=== PATIENT | male | born 1980 | race Caucasian/White ===

== ENCOUNTER 2019-12-14 21:11 | Inpatient (IN) | payer BC ==
[~2019-12-14] VITALS: Ht 172.7 cm; Wt 101.6 kg
[2019-12-14] MEDS ORDERED: IV NORMAL SALINE 1000 ML BAG IV ONE (21:15)
[2019-12-14 21:53] LABS: BASOPHILS # (AUTO) 0.1 K/uL (0.0-8.0); BASOPHILS % (AUTO) 0.6 % (0.0-2.0); EOSINOPHILS # (AUTO) 0.1 K/uL (0.0-0.7); EOSINOPHILS % (AUTO) 0.8 % (0.0-7.0); HEMATOCRIT 48.3 % (36.7-47.1); HEMOGLOBIN 16.3 g/dL (12.5-16.3); LYMPHOCYTES # (AUTO) 1.5 K/uL (20.0-40.0); LYMPHOCYTES % (AUTO) 16.5 % (20.5-51.5); MEAN CORPUSCULAR HEMOGLOBIN 30.6 uug (23.8-33.4); MEAN CORPUSCULAR HGB CONC 34 g/dL (32.5-36.3); MONOCYTES # (AUTO) 0.7 K/uL (2.0-10.0); MONOCYTES % (AUTO) 7.5 % (0.0-11.0); NEUTROPHILS # (AUTO) 6.6 K/uL (1.8-8.9); NEUTROPHILS % (AUTO) 74.6 % (38.5-71.5); PLATELET COUNT (AUTO) 199 K/uL (152-348); RED BLOOD CELL COUNT(AUTO) 5.31 MIL/uL (4.06-5.63); WHITE BLOOD COUNT (AUTO) 8.8 K/uL (3.6-10.2)
[2019-12-14 22:04] LABS: CARBON DIOXIDE 26 mmol/L (21-32); CHLORIDE 111 mmol/L (98-107); CREATININE 1.3 mg/dL (0.6-1.3); GLUCOSE 111 mg/dL (74-106); POTASSIUM 3.8 mmol/L (3.5-5.1); UREA NITROGEN, BLOOD 25 mg/dL (7-18)
[2019-12-14 22:10] LABS: ETHANOL < 3 MG/DL (0-0)
[2019-12-14] MEDS ORDERED: IV D5W 1000ML 1,000 ML IV ONE (22:15)
[2019-12-14 22:16] LABS: THYROID STIMULATING HORMONE 1.515 mIU/mL (0.358-3.740)
[2019-12-14 22:22] LABS: ACETAMINOPHEN < 2.0 ug/mL (10-30); ALANINE AMINOTRANSFERASE 42 U/L (16-63); ALKALINE PHOSPHATASE 96 U/L (50-136); ASPARTATE AMINOTRANSFERASE 21 U/L (15-37); BILIRUBIN,DIRECT 0.3 mg/dL (0.0-0.2); BILIRUBIN,TOTAL 0.8 mg/dL (0.2-1.0); TOTAL PROTEIN, SERUM 8.6 g/dL (6.4-8.2)
--- NOTE | 2019-12-14 23:00 | NUR ---
Spoke with Akua López (; [phone]) regarding patients history. MD will follow up with family.
--- NOTE | 2019-12-15 00:39 | NUR ---
[facility] called to admit patient per MD instruction. Spoke with Samuel
--- NOTE | 2019-12-15 01:28 | NUR ---
Dr. Ramos on panel call with Dr. Hernandez.
--- NOTE | 2019-12-15 02:07 | NUR ---
Report given to SARATH Carreno for continuity of care.
[2019-12-15 03:00] VITALS: BP 141/89
--- NOTE | 2019-12-15 03:00 | NUR ---
RECEIVED PATIENT AWAKE , NON VERBAL , 20 GA RAC , , RA , RESPONDS TO LIGHT TOUCH , AND PAIN , WITH SPONTANEOUS EYE OPENING
[2019-12-15] MEDS ORDERED: IV D5 1/2 NS 1000 ML 1,000 ML IV PRN (03:16)
[2019-12-15] MEDS ORDERED: HYDROCODONE/APAP 5-325MG TABLET PO PRN (03:30)
[2019-12-15] MEDS ORDERED: ZOLPIDEM 5 MG TABLET PO PRN (03:30)
[2019-12-15] MEDS ORDERED: Z GUARD REMEDY PASTE 57 GM TUBE TOP PRN (03:30)
[2019-12-15] MEDS: IV D5 1/2 NS 1000 ML 1,000 ML IV PRN ×3 (03:30→22:22)
[2019-12-15] MEDS ORDERED: ACETAMINOPHEN 325 MG TABLET PO PRN (03:30)
[2019-12-15] MEDS ORDERED: MAGNESIUM HYDROXIDE 30 ML LIQUID UDC PO PRN (03:30)
--- NOTE | 2019-12-15 03:30 | NUR ---
DR PERERA CALLED FOR ADMISSION ORDERS AND NOTIFIED OF PATIENT'S CONDTION AND PROCEDURES RESULTS
--- NOTE | 2019-12-15 03:30 | NUR ---
INSERTED BEST CATHETER WITH ONE ATTEMPT 16 FR , SECURED WITH A STATLOCK, TEA COLORED URINE ,
--- NOTE | 2019-12-15 03:36 | NUR ---
HUSSAIN CALLED , , NO RESPONSE
--- NOTE | 2019-12-15 04:42 | NUR ---
VITAL SIGNS AND MENTAL STATUS BEING MONITORED , CURRENTLY ON D5 07/25 NS AT 125 ML Addendum: 12/15/19 at 044 by TAYLOR MATOS RN Amended: Watson added. Addendum: 12/15/19 at 442 by TAYLOR MATOS RN Amended: Links added. Addendum: 12/15/19 at 4 by TAYLOR MATOS RN Amended: Links added. Addendum: 12/15/19 at 0445 by TAYLOR MATOS RN Amended: Links added.
--- NOTE | 2019-12-15 04:43 | NUR ---
LEOC BEING MCHECKED AND OXYGENATION , CURENTLY ON RA AND O2 SATURATION 96 % , NO SIGNS OF DISTRESS Addendum: 12/15/19 at 0443 by TAYLOR MATOS RN Amended: Links added. Addendum: 12/15/19 at 4 by TAYLOR MATOS RN Amended: Links added. Addendum: 12/15/19 at 0445 by TAYLOR MATOS RN Amended: Links added.
--- NOTE | 2019-12-15 04:44 | NUR ---
SWALLOW EVALUATION ORDERED Addendum: 12/15/19 at 0444 by TAYLOR MATOS RN Amended: Watson added. Addendum: 12/15/19 at 0445 by TAYLOR MATOS RN Amended: Watson matias.
--- NOTE | 2019-12-15 04:45 | NUR ---
INTAKE AND OUTPUT BEING MONITORED Addendum: 12/15/19 at 0445 by TAYLOR MATOS RN Amended: Links added.
--- NOTE | 2019-12-15 04:46 | NUR ---
HUSSAIN EDUCATED ABOUT SWALLOWING EVALUATION AND PSYCHIATRIC CONSULTS BENEFIT AND VERBALIZES UNDERSTANDING Addendum: 12/15/19 at 0446 by TAYLOR MATOS RN Amended: Links added.
--- NOTE | 2019-12-15 04:49 | NUR ---
SODIUM LEVEL WILL BE IN AN ACCEPTABLE VALUES , CURRENTLY ON D5 /S NS AT 125 ML/HR Addendum: 12/15/19 at 0449 by TAYLOR MATOS RN Amended: Links added.
--- NOTE | 2019-12-15 05:00 | NUR ---
PO TRIAL TRIED , WITH SMALL WATER AND APPLE SAUCE , FAILED , PATIENT WOULDN'T OPEN MOUTH
[2019-12-15 05:27] LABS: *BILIRUBIN,URIN 3+ (NEGATIVE); *BLOOD, URINE NEGATIVE (NEGATIVE); *CLARITY,URINE SLIGHTLY CLOUDY (CLEAR); *COLOR,URINE AMBER (YELLOW); *KETONES,URINE 4+ (NEGATIVE); LEUKOCYTE ESTERASE ,URINE NEGATIVE (NEGATIVE); NITRITE, URINE NEGATIVE (NEGATIVE); UGLUCOSE NEGATIVE (NEGATIVE)
[2019-12-15 05:43] LABS: *AMPHETAMINE, URINE NEGATIVE (NEGATIVE); *BARBITURATE, URINE NEGATIVE (NEGATIVE); *CANNABINOID, URINE POSITIVE (NEGATIVE); *COCCAINE, URINE NEGATIVE (NEGATIVE); *OPIATE, URINE NEGATIVE (NEGATIVE); *PHENCYCLIDINE SCREEN,URINE NEGATIVE (NEGATIVE)
[2019-12-15 05:48] LABS: BACTERIA,URINE NONE SEEN /HPF (NONE SEEN); RBC,URINE NONE SEEN /HPF (0-3); SQUAMOUS EPITHELIAL CELL,UR NONE SEEN /HPF (NONE SEEN); URINE AMORPHOUS URATE MODERATE /HPF; WBC,URINE 0-3 /HPF (0-3)
[2019-12-15 06:00] VITALS: BP 130/92
--- NOTE | 2019-12-15 06:16 | NUR ---
Held Protonix / pending swallow eval.
[2019-12-15] MEDS ORDERED: PANTOPRAZOLE SODIUM 40 MG TABLET.DR PO SCH (07:00)
--- NOTE | 2019-12-15 07:30 | NUR ---
Received report from rn night nurse, patient in bed awake with flat affect but able to squeeze hands when asked to. Sinus rhythm on the monitor, room air, singleton draining deysi colored urine. Bed in low position, side rails up x2. Bed alarm on.
[2019-12-15 07:50] LABS: BASOPHILS # (AUTO) 0.1 K/uL (0.0-8.0); BASOPHILS % (AUTO) 0.7 % (0.0-2.0); EOSINOPHILS # (AUTO) 0.1 K/uL (0.0-0.7); EOSINOPHILS % (AUTO) 0.9 % (0.0-7.0); HEMATOCRIT 44.1 % (36.7-47.1); HEMOGLOBIN 14.9 g/dL (12.5-16.3); LYMPHOCYTES # (AUTO) 1.3 K/uL (20.0-40.0); LYMPHOCYTES % (AUTO) 13.6 % (20.5-51.5); MEAN CORPUSCULAR HEMOGLOBIN 30.7 uug (23.8-33.4); MEAN CORPUSCULAR HGB CONC 34 g/dL (32.5-36.3); MEAN CORPUSCULAR VOLUME 90.7 fL (73.0-96.2); MONOCYTES # (AUTO) 0.8 K/uL (2.0-10.0); MONOCYTES % (AUTO) 8.2 % (0.0-11.0); NEUTROPHILS # (AUTO) 7.6 K/uL (1.8-8.9); NEUTROPHILS % (AUTO) 76.6 % (38.5-71.5); PLATELET COUNT (AUTO) 182 K/uL (152-348); RED BLOOD CELL COUNT(AUTO) 4.86 MIL/uL (4.06-5.63); WHITE BLOOD COUNT (AUTO) 9.9 K/uL (3.6-10.2)
[2019-12-15 08:00] VITALS: BP 132/79
--- NOTE | 2019-12-15 08:00 | NUR ---
Patient seen by Dr. Marin.
[2019-12-15 08:04] LABS: CREATININE 1.1 mg/dL (0.6-1.3); MAGNESIUM 1.8 mg/dL (1.8-2.4); PHOSPHOROUS 3.2 mg/dL (2.5-4.9); POTASSIUM 3.3 mmol/L (3.5-5.1)
[2019-12-15 08:25] LABS: THYROID STIMULATING HORMONE 1.319 mIU/mL (0.358-3.740)
[2019-12-15] MEDS: PANTOPRAZOLE SODIUM 40 MG VIAL IV SCH (09:55)
[2019-12-15 10:00] VITALS: BP 142/89
[2019-12-15 12:00] VITALS: BP 131/81
[2019-12-15 12:16] LABS: *BLOOD, URINE 2+ (NEGATIVE); *CLARITY,URINE SLIGHTLY CLOUDY (CLEAR); *KETONES,URINE 3+ (NEGATIVE); LEUKOCYTE ESTERASE ,URINE NEGATIVE (NEGATIVE); NITRITE, URINE NEGATIVE (NEGATIVE); PH,URINE 5.5 (5.0-8.0); UGLUCOSE NEGATIVE (NEGATIVE)
[2019-12-15 12:24] LABS: *BILIRUBIN,URIN 2+ (NEGATIVE)
--- NOTE | 2019-12-15 12:30 | NUR ---
Dr. Newell was called and stated that he will not be able to see the patient today.
[2019-12-15 12:31] LABS: *COLOR,URINE DARK YELLOW (YELLOW); *CREATININE,URINE 232.2 mg/dL (30-125); *URINE TOTAL PROTEIN RANDOM 51.6 mg/dL (<150/24HR)
[2019-12-15 12:32] LABS: BACTERIA,URINE FEW /HPF (NONE SEEN); SQUAMOUS EPITHELIAL CELL,UR FEW /HPF (NONE SEEN); URINE AMORPHOUS URATE FEW /HPF; WBC,URINE 0-3 /HPF (0-3)
--- NOTE | 2019-12-15 12:40 | NUR ---
Patient seen by Dr. Lopez.
[2019-12-15] MEDS: POTASSIUM CHLORIDE 50 ML IV SCH ×2 (13:08→14:29)
--- NOTE | 2019-12-15 13:51 | NUR ---
Report called raymond Dietz/Daniel CLEMENS. Patient in no apparent distress at the time of transfer. Patient continues to be on room air. Verduzco draining, Vitals stable at time of transfer.
--- NOTE | 2019-12-15 14:00 | NUR ---
Patient was told that he will be transferred to wheel chair to go to a med/surg room on 3rd floor. Patient independently got up and sat in wheel chair and continued to be non-verbal. No distress seen at this time.
--- NOTE | 2019-12-15 14:04 | NUR ---
Patient moved to med/surg floor.
--- NOTE | 2019-12-15 14:10 | NUR ---
Pt received via wheelchair, able to assist to stand and transfer to bed. Verduzco Catheter intact and draining. IV patent with fluids running including IVPB. VSS. No acute distress, pain, or SOB noted upon arrival to unit. Call light within reach. Will continue to monitor.
--- NOTE | 2019-12-15 20:21 | NUR ---
Received pt resting in bed. Noted to have flat affect and just staring blankly. Non- verbal but response by nodding and using gestures. Offered pt to drink or eat, but pt refused. Verduzco catheter intact, draining with tea colored urine. IV infusing D5 1/2 NS at 125 mL / hr. Safety measures maintained. Will continue to monitor. Addendum: 12/15/19 at 2103 by Nichole Waldron RN No acute distress noted. Denies pain/ discomfort.
[2019-12-15 21:13] VITALS: BP 143/95
--- NOTE | 2019-12-16 04:48 | NUR ---
Pt slept comfortably at night. All needs attended to promptly. Pt continues to be non- verbal and has flat affect, but follows command and able to make needs known. Pt still refused to eat/ drink. Continue to monitor.
--- NOTE | 2019-12-16 05:22 | NUR ---
Pt noted to verbalize some words this morning, asking for a blanket. Continue to monitor.
[2019-12-16 06:25] VITALS: BP 152/71
--- NOTE | 2019-12-16 08:00 | NUR ---
VSS 98.2-70-18 BP 152/71. SATS 97% ON ROOM AIR. PATIENT DOES NOT RESPOND VERBALLY AND USUALLY JUST STARES INTO SPACE WITH HANDS IN OPEN POSITION. PATIENT IS SEVERELY WITHDRAWN BUT NONCOMBATIVE. DOES NOT OBEY ANY SIMPLE COMMANDS AT THIS TIME. NURSE WAS SITTING OUTSIDE OF ROOM WITH BED ALARM ACTIVATED WHEN PATIENT GOT OOB WITHOUT ASSIST AND BED ALARM ACTIVATED. PATIENT POINTED TO BEST CATH INDICATING THAT HE WANTED THE BEST OUT BUT NURSE ASSURED HIM THAT BEST IS TO REMAIN IN. PATIENT WANTED TO MOVE AWAY FROM BED DESPITE BEST AND IV INFUSION, NURSE COMMANDED PATIENT TO SIT AT CHAIR AT BEDSIDE AND PATIENT DID TAKE 2-3 STEPS TO HIS RIGHT AND SAT DOWN IN CHAIR AT BEDSIDE. MANAGER SOCIAL MEDIA AND RN ATTEMPTED TO FEED PATIENT BUT HE REFUSES FOOD AND/OR SIMPLY DOES NOT OPEN HIS MOUTH. WITHDRAWN TENDENCIES SEEM TO BE VOLUNTARY AND PATIENT SEEMS TO COOPERATE WHEN HE WANTS TO DO AND NOT COOPERATE WHEN HE DOESN'T WANT TO. ASSESSMENT IS ONGOING. PHYSICALLY, PATIENT APPEARS TO BE HEMODYNAMICALLY STABLE. NO SIGNS OF ACUTE CARDICA/RESPIRATORY DISTRESS OR SUPPRESSION.
[2019-12-16] MEDS: IV D5 1/2 NS 1000 ML 1,000 ML IV PRN (08:11)
[2019-12-16] MEDS: PANTOPRAZOLE SODIUM 40 MG VIAL IV SCH (08:35)
[2019-12-16 12:00] VITALS: BP_SYST 150; BP_SYST 154; BP_DIAS 88; BP_DIAS 99
--- NOTE | 2019-12-16 12:00 | NUR ---
VSS 98.1-94-20 BP 154/99. SATS 98% ON ROOM AIR. NEUROLOGIST CAME TO SEE PATIENT BEFORE LUNCH AND PSYCHOLOGIST ALSO CAME AND DID CONSULT. PATIENT CONTINUES TO BE WITHDRAWN AND NONRESPONDENT. SISTER, EMIL, CALLED AND , HUSSAIN, ALSO CALLED. NURSE UNABLE TO GIVE OUT A LENGTHY REPORT PER HIPPA LAWS. TELLS NURSE THAT PATIENT WAS NOT ON ANY HOME MEDS PRIOR TO ADMISSION AND EXPANDED ON THE CIRCUMSTANCES AND PERSONAL DIFFICULTIES THAT THIS PATIENT HAS ENDURED. PATIENT'S FATHER APPROX. ONE YEAR AGO AND PATIENT'S INFANT CHILD [address] TAVARES PERFORMED A BEDSIDE ASSESSMENT AND FINDS THAT WHILE PATIENT DOES EXHIBIT SOME NEUROLOGICAL CHANGES, FEELS THAT MOST OF HIS SYMPTOMS ARE PSYCHOLOGICAL IN NATURE. NO SEIZURES OR TREMORS NOTED. PATIENT WOULD NOT STAND UPON COMMAND IN ORDER TO RETURN TO BED. STAFF HAD TO BODY LIFT PATIENT BACK TO BED REQUIRING 4 NURSES. PLACED ON AIR FLOW MATTRESS BED. NO SKIN BREAKDOWNS. NURSE FLOATS BOTH HEELS WITH PILLOWS,
[2019-12-16 13:38] LABS: BASOPHILS # (AUTO) 0.1 K/uL (0.0-8.0); BASOPHILS % (AUTO) 0.6 % (0.0-2.0); EOSINOPHILS # (AUTO) 0.1 K/uL (0.0-0.7); EOSINOPHILS % (AUTO) 0.7 % (0.0-7.0); HEMATOCRIT 44.8 % (36.7-47.1); HEMOGLOBIN 15.2 g/dL (12.5-16.3); LYMPHOCYTES % (AUTO) 11.1 % (20.5-51.5); MEAN CORPUSCULAR HEMOGLOBIN 30.6 uug (23.8-33.4); MEAN CORPUSCULAR HGB CONC 34 g/dL (32.5-36.3); MEAN CORPUSCULAR VOLUME 90.5 fL (73.0-96.2); MONOCYTES # (AUTO) 0.6 K/uL (2.0-10.0); MONOCYTES % (AUTO) 7.3 % (0.0-11.0); NEUTROPHILS # (AUTO) 7.1 K/uL (1.8-8.9); NEUTROPHILS % (AUTO) 80.3 % (38.5-71.5); PLATELET COUNT (AUTO) 166 K/uL (152-348); RED BLOOD CELL COUNT(AUTO) 4.95 MIL/uL (4.06-5.63); WHITE BLOOD COUNT (AUTO) 8.9 K/uL (3.6-10.2)
[2019-12-16 14:00] LABS: BILIRUBIN,TOTAL 0.9 mg/dL (0.2-1.0); MAGNESIUM 1.9 mg/dL (1.8-2.4); PHOSPHOROUS 3.3 mg/dL (2.5-4.9); POTASSIUM 3.4 mmol/L (3.5-5.1); TOTAL PROTEIN, SERUM 7.4 g/dL (6.4-8.2)
[2019-12-16] MEDS ORDERED: IV D5/ 0.9% NACL 1,000 ML IV PRN (14:30)
--- NOTE | 2019-12-16 14:30 | NUR ---
PLEASE NOTE THAT TODAYS LABS HAD TO BE DRAWN LATE THE LAB WAS UNABLE TO OBTAIN THEM IN THE MORNING AND OBTAINED LABS AFTER PATIENT RETURNED TO BED. TODAY'S SODIUM =120. NURSE PLACED EMERGENCY CALL OUT TO DR. KAL GUILLEN AT 14:11 AND THE CALLED BACK 5 MINUTES LATER AT 14:16. DR. GUILLEN WILL WRITE APPROPRIATE ORDERS. PATIENT SHOWS NO SIGNS OF ACUTE HYPONATREMIA.
[2019-12-16 16:00] VITALS: BP 141/87
--- NOTE | 2019-12-16 16:00 | NUR ---
VSS 98.0-72-19 BP 141/87. SATS 98% ON ROOM AIR. PATIENT CONTINUES TO BE WITHDRAWN. NURSE ASSURED DR. SUÁREZ SPOKE DIRECTLY TO , HUSSAIN. NURSE RECEIVED ORDER TO HOLD IVFLUIDS AND REPEAT BMP. PENDING RESULT.
--- NOTE | 2019-12-16 18:45 | NUR ---
NURSE SPOKE WITH DR. GUILLEN AND REPORTED THAT LAB HAD NOT DRAWN REPEAT BMP BECAUSE THE ORDER WAS WITHIN AN HOUR OF THE AM REDRAW. DR. GUILLEN CONFIRMED THAT SHE INDEED WANTED THE REPEAT BMP STAT AND TO HOLD IV FLUIDS. THESE ORDERS CARRIED OUT UNTIL FURTHER NOTICE. REDRAW ON BMP IS NOT PENDING AND THIS INFORMATION WILL BE CAREFULLY CONVEYED IN SHIFT REPORT. NURSE ALSO EMPHASIZED TODAY'S TODAY'S K+=3.4 AND THE MOST RECENT IV FLUID ORDERS WERE WITHOUT POTASSIUM. THERE IS A NEW ORDER TODAY FOR AN EEG ALSO.
--- NOTE | 2019-12-16 18:55 | NUR ---
STAT LABS CAME BACK WITH NA+=143, K+=3.4 AND OTHER VALUES UNREMARKABLE. NURSE PUT OUT AN EMERGENCY CALL TO DR. GUILLEN'S OFFICE AND LEARNED THAT ANOTHER IS SALES AND SERVICE AGENT FOR HER AND NURSE NOW AWAITS A CALL BACK FROM THAT PHYSICIAN. THIS INFORMATION WILL BE CONVEYED IN SHIFT CHANGE REPORT.
--- NOTE | 2019-12-16 19:00 | NUR ---
Patient in bed resting. Patient has no s/s of pain or acute distress. Patient noted to be in flat affect. Just staring straight and non-verbal. Patient's vitals are stable. IV is intact and patent. Potassium is 3.4, will give 2 bags of potassium as ordered by Dr. Lopez. Safety measures in place. Bed alarm on. Will continue with the plan of care.
[2019-12-16 19:11] LABS: POTASSIUM 3.4 mmol/L (3.5-5.1)
[2019-12-16 20:00] VITALS: BP 133/79
[2019-12-16] MEDS: POTASSIUM CHLORIDE 50 ML IV SCH ×2 (20:35→21:55)
[2019-12-16] MEDS: IV D5/ 0.9% NACL 1,000 ML IV PRN (21:34)
[2019-12-17] MEDS: IV D5/ 0.9% NACL 1,000 ML IV PRN (03:18)
[2019-12-17 04:00] VITALS: BP 144/84
[2019-12-17 06:38] LABS: CREATININE 0.9 mg/dL (0.6-1.3); MAGNESIUM 1.5 mg/dL (1.8-2.4); PHOSPHOROUS 4.1 mg/dL (2.5-4.9); POTASSIUM 3.3 mmol/L (3.5-5.1)
[2019-12-17 06:43] LABS: BASOPHILS % (AUTO) 0.4 % (0.0-2.0); EOSINOPHILS # (AUTO) 0.1 K/uL (0.0-0.7); EOSINOPHILS % (AUTO) 1.7 % (0.0-7.0); HEMATOCRIT 41.9 % (36.7-47.1); HEMOGLOBIN 14.4 g/dL (12.5-16.3); LYMPHOCYTES # (AUTO) 1.1 K/uL (20.0-40.0); MEAN CORPUSCULAR HGB CONC 34 g/dL (32.5-36.3); MEAN CORPUSCULAR VOLUME 90.5 fL (73.0-96.2); MONOCYTES # (AUTO) 0.6 K/uL (2.0-10.0); MONOCYTES % (AUTO) 7.9 % (0.0-11.0); NEUTROPHILS # (AUTO) 5.7 K/uL (1.8-8.9); PLATELET COUNT (AUTO) 146 K/uL (152-348); RED BLOOD CELL COUNT(AUTO) 4.63 MIL/uL (4.06-5.63); WHITE BLOOD COUNT (AUTO) 7.6 K/uL (3.6-10.2)
--- NOTE | 2019-12-17 06:52 | NUR ---
Patient in bed awake. Patient has no s/s of acute distress or pain. Patient continues to be non-verbal, just stares on the ceiling and flat affect. However, patient is able to follow commands and took his morning medication. Patient refused to eat or drink. Verduzco is patent and draining cloudy yellow urine. Vitals are stable. Safety measures in place. Bed low and locked in position. Bed alarm on, call light within reach. Will endorse to the oncoming nurse accordingly.
[2019-12-17] MEDS: PANTOPRAZOLE SODIUM 40 MG TABLET.DR PO SCH (07:03)
[2019-12-17 08:56] VITALS: BP 143/85
[2019-12-17] MEDS: POTASSIUM CHLORIDE 50 ML IV SCH ×2 (09:11→10:46)
[2019-12-17] MEDS ORDERED: POTASSIUM CHLORIDE 10 MEQ TAB.PRT.SR PO ONE (11:00)
[2019-12-17] MEDS: MAGNESIUM SULFATE/D5W 100 ML IV SCH ×2 (14:34→15:58)
[2019-12-17 15:58] VITALS: BP 131/77
--- NOTE | 2019-12-17 19:18 | NUR ---
PATIENT NON VERBAL THROUGH OUT SHIFT. PATIENT NOT EATING ; PATIENT WITH MILD RESPONSES TO STIMULI ; PATIENT OTHERWISE IN BED WITH STABLE VITAL SIGNS AND BASELINE MENTAL STATUS; PATIENT WILL CONTINUE TO BE MONITORED.
[2019-12-17] MEDS: IV D5 1/2 NS 1000 ML 1,000 ML IV PRN (19:31)
[2019-12-17 20:04] VITALS: BP 137/87
--- NOTE | 2019-12-17 20:30 | NUR ---
Dr Pro called and ordered loading dose of Keppra 2000 mg IV now then start 1000 mg BID Keppra tomorrow;
[2019-12-17] MEDS ORDERED: levETIRAcetam IV 2,000 MG in IV DEXTROSE 5% 100 ML IV ONE (21:00)
--- NOTE | 2019-12-18 02:26 | NUR ---
pt threw up greenish emesis; complete bath given; pt answers to simple questions regarding comfort; able to show by hand how he wants his bed high; encouraged PO intake; offered nourishments but refused; continue to monitor.
[2019-12-18 04:02] VITALS: BP 132/85
[2019-12-18] MEDS: ONDANSETRON 4 MG/2 ML VIAL IV PRN (04:39)
[2019-12-18 05:55] LABS: CREATININE 1.1 mg/dL (0.6-1.3); MAGNESIUM 1.9 mg/dL (1.8-2.4); POTASSIUM 3.1 mmol/L (3.5-5.1)
[2019-12-18] MEDS: PANTOPRAZOLE SODIUM 40 MG TABLET.DR PO SCH (06:22)
--- NOTE | 2019-12-18 06:53 | NUR ---
Patient in bed, sleeping. Patient remained non-verbal throughout the shift. Patient stares on ceiling most of the time but follows simple commands,patient had another episode of green emesis during the shift. Was given PRN Zofran to relieve nausea/vomiting. Dr. Roblero is aware. Continue to monitor. Also, patient has sitter on site for safety. Patient's vitals stable. Safety measures in place. Bed alarm on. Will endorse to the oncoming nurse accordingly.
--- NOTE | 2019-12-18 07:24 | NUR ---
Patient on seizure precaution.
[2019-12-18] MEDS ORDERED: levETIRAcetam 500 MG TABLET PO SCH (09:00)
[2019-12-18] MEDS: levETIRAcetam IV 1,000 MG in IV DEXTROSE 5% 100 ML IV SCH ×2 (09:27→22:10)
[2019-12-18 10:26] LABS: BASOPHILS % (AUTO) 0.4 % (0.0-2.0); EOSINOPHILS # (AUTO) 0.1 K/uL (0.0-0.7); EOSINOPHILS % (AUTO) 0.9 % (0.0-7.0); HEMOGLOBIN 14.5 g/dL (12.5-16.3); LYMPHOCYTES # (AUTO) 1.2 K/uL (20.0-40.0); LYMPHOCYTES % (AUTO) 16.2 % (20.5-51.5); MEAN CORPUSCULAR HEMOGLOBIN 31.1 uug (23.8-33.4); MEAN CORPUSCULAR HGB CONC 35 g/dL (32.5-36.3); MEAN CORPUSCULAR VOLUME 90.2 fL (73.0-96.2); MONOCYTES # (AUTO) 0.4 K/uL (2.0-10.0); NEUTROPHILS # (AUTO) 5.7 K/uL (1.8-8.9); NEUTROPHILS % (AUTO) 76.5 % (38.5-71.5); PLATELET COUNT (AUTO) 144 K/uL (152-348); RED BLOOD CELL COUNT(AUTO) 4.66 MIL/uL (4.06-5.63); WHITE BLOOD COUNT (AUTO) 7.4 K/uL (3.6-10.2)
[2019-12-18] MEDS: IV D5 1/2 NS 1000 ML 1,000 ML IV PRN (10:43)
[2019-12-18] MEDS: POTASSIUM CHLORIDE 50 ML IV SCH ×2 (10:44→12:15)
[2019-12-18 11:00] VITALS: BP 119/71
[2019-12-18 13:07] LABS: A/G RATIO 1.2 (0.7-1.7); ALBUMIN 3.7 g/dL (2.9-4.4); ALPHA-1-GLOBULIN 0.3 g/dL (0.0-0.4); ALPHA-2-GLOBULIN 0.8 g/dL (0.4-1.0); BETA GLOBULIN 1.3 g/dL (0.7-1.3); GAMMA GLOBULIN 0.8 g/dL (0.4-1.8); GLOBULIN, TOTAL 3.2 g/dL (2.2-3.9); M-SPIKE Not Observed g/dL (Not Observed)
--- NOTE | 2019-12-18 15:00 | NUR ---
placed a call to [facility] re MRI sched- will call back and let me know
[2019-12-18 15:14] LABS: CSF PROTEIN 34 mg/dL (15-45)
--- NOTE | 2019-12-18 15:32 | NUR ---
TEXTED DR. RUDOLPH FOR MRI APPROVAL.
[2019-12-18 15:48] VITALS: BP 130/72
[2019-12-18 16:04] LABS: CSF GLUCOSE 76 mg/dL (40-70)
--- NOTE | 2019-12-18 19:47 | NUR ---
patient mostly lethargic and nonresponse to verbal stimuli through out shift; had moments of verbal response; patient had spinal puncture ; results relayed to neurology and attending; patient to have mri at 8pm tonight for further evaluation due to symptoms; patient with stable vital signs . patient had ultrasound of gallbladder and was placed on liquid diet ; patient still refusing food. Report given to oncoming nurse.
--- NOTE | 2019-12-18 19:57 | NUR ---
Received patient in bed. awake but unresponsive, not interacting, starring on the wall with flat affect. No acute distress or SOB was noted. Not seems on pain at this time. On room air. Physical assessment done. safety measures maintain, fall prevention observed. Skin assessed. seizure precaution maintained. PICC line in left upper arm, no sign of inflammation, IV fluid D5 and half saline is running at the rate of 75ml/hour. Bed in locked and low position, side rails up x2 for safety, bed alarm on. Call light and frequently using items within reach. Continue to monitor.
[2019-12-18 20:07] VITALS: BP 133/81
--- NOTE | 2019-12-18 20:35 | NUR ---
Patient left the unit @2029 by ambulance to [facility] for brain MRI. VS stable. Condition fair.
--- NOTE | 2019-12-18 22:05 | NUR ---
Patient came back from [facility] @2200. VS stable, condition fair.
--- NOTE | 2019-12-18 22:45 | NUR ---
Noted that the intake output documentation shows no BM for more than 3 days. PRN Magnesium hydroxide 30 ML offered to the patient. He refused the medication by moving his head meaning "no". explained the benefit of the drug for his condition, still refused. Continue to monitor and will endorse to the day shift nurse.
[2019-12-19] MEDS: LORAZEPAM 2 MG/1 ML VIAL IV PRN (04:19)
--- NOTE | 2019-12-19 04:30 | NUR ---
Patient sitting in the bed, seemed agitated, tried to came out of the bed. VS stable. PRN Ativan 1 mg IV administered. Continue to monitor.
[2019-12-19 04:51] VITALS: BP 127/87
[2019-12-19] MEDS: PANTOPRAZOLE SODIUM 40 MG TABLET.DR PO SCH (06:20)
[2019-12-19 06:26] LABS: BASOPHILS % (AUTO) 0.6 % (0.0-2.0); EOSINOPHILS # (AUTO) 0.1 K/uL (0.0-0.7); HEMATOCRIT 38.9 % (36.7-47.1); HEMOGLOBIN 13.5 g/dL (12.5-16.3); LYMPHOCYTES # (AUTO) 0.8 K/uL (20.0-40.0); LYMPHOCYTES % (AUTO) 10.2 % (20.5-51.5); MEAN CORPUSCULAR HGB CONC 35 g/dL (32.5-36.3); MEAN CORPUSCULAR VOLUME 89.3 fL (73.0-96.2); MONOCYTES # (AUTO) 0.5 K/uL (2.0-10.0); MONOCYTES % (AUTO) 6.8 % (0.0-11.0); NEUTROPHILS # (AUTO) 6.5 K/uL (1.8-8.9); NEUTROPHILS % (AUTO) 81.4 % (38.5-71.5); PLATELET COUNT (AUTO) 124 K/uL (152-348); RED BLOOD CELL COUNT(AUTO) 4.35 MIL/uL (4.06-5.63)
--- NOTE | 2019-12-19 08:00 | NUR ---
received pt. resting in bed with eyes closed. Pt. able to follow simple command. L UA midline intact patent running prescribed fluid. pt. appears in no distress. pt. on air mattress. safety measures in place. call light within reach. will continue to monitor pt.
[2019-12-19] MEDS: levETIRAcetam IV 1,000 MG in IV DEXTROSE 5% 100 ML IV SCH (08:39)
[2019-12-19] MEDS ORDERED: levETIRAcetam IV 500 MG in IV DEXTROSE 5% 100 ML IV ONE (09:00)
[2019-12-19] MEDS: POTASSIUM CHLORIDE 50 ML IV SCH ×4 (09:28→15:27)
[2019-12-19] MEDS ORDERED: ASPIRIN 81 MG TAB.CHEW PO SCH (11:15)
[2019-12-19] MEDS: ONDANSETRON 4 MG/2 ML VIAL IV PRN (12:56)
[2019-12-19] MEDS: ASPIRIN 300 MG RECTAL SUPP RC SCH (13:33)
--- NOTE | 2019-12-19 14:19 | NUR ---
pt. eyes are open and he is staring at ceiling. unable to follow direction. unable to track with eyes. pt. had 3 episodes of vomiting. PRN Zofran administered. Pt. unable to do swallow evaluation test as pt. is not following direction. NIH scale completed and reported to STEEL DIE PRESS SET UP OPERATOR Felipe. Dr. Freitas called and ordered another EEG. Spoke to elementary school social worker, joined zoom call to assess pt. pt. resting in bed in catatonic state
--- NOTE | 2019-12-19 14:29 | NUR ---
Puttying And Calking Supervisor Consultation: Due to COVID-19 and droplet precautions, psychosocial assessment completed with the patient via ZOOM and information was also gathered through face-sheet, H&P, interdisciplinary team progress notes, and consultation from patient's nurse. 2:15pm: SW attempted to complete a psychosocial assessment with the patient, via ZOOM. Patient is lying down in his bed. Patient is unresponsive to this SW calling his name x 3. Patient is unresponsive to any of SW's questions, and patient is staring at the ceiling with a flat affect. Patient is unable to follow commands. SW is unable to gather any personal or medical history from the patient. SW is unable to complete the PHQ-9 due to patient being non-verbal. According to this SW's consultation with SARATH London, and patient's medical records, patient has been non-verbal since admission. Per patient's medical records, patient was brought into the ED by paramedics on 12/14 after his aunt called paramedics because patient had not been eating or drinking for several days, and was presenting with altered mental status. Patient is a 39 year old male, . Per patient's , patient was missing for 2 months, and the family did not know that patient was living with his aunt. Per patient's , patient lost his father 1 year ago, and they lost their baby 6 months ago. Per patient's , patient was hospitalized in a psychiatric facility in after the police found him wandering on the streets. Patient is currently being seen by a psychiatrist during this hospitalization (see medical records). Case management to work with patient and patient's family to coordinate discharge plans. instructional support services director to be available, as needed.
[2019-12-19 20:00] VITALS: BP 120/81
--- NOTE | 2019-12-19 20:00 | NUR ---
RECEIVED PATIENT AWAKE, SITTING UPRIGHT IN BED. CATATONIC, STARRING UP AT THE CEILING. NO S/S OF PAIN OR DISCOMFORT. NO FACIAL GRIMACE NOTED. NO RESP. DISTRESS NOTED. VS WNL. MID-LINE NOTED TO LEFT UPPER ARM, WITH IVF INFUSING WELL. F/C INTACT AND DRAINING. BED ALARM ON. SIDE RAILS PADDED FOR SEIZURE PRECAUTIONS. CALL LIGHT IN REACH. ALL NEEDS ATTENDED. WILL CONTINUE TO MONITOR AND ASSESS.
--- NOTE | 2019-12-19 20:30 | NUR ---
PATIENT IS UNABLE TO TAKE P ZOCOR AT THIS TIME. COMMUNITY EDUCATOR NOTIFIED. ALL NEEDS ATTENDED.
[2019-12-19] MEDS: SIMVASTATIN 10 MG TABLET PO SCH (20:32)
[2019-12-19] MEDS ORDERED: levETIRAcetam IV 1,500 MG in IV DEXTROSE 5% 100 ML IV SCH (21:00)
--- NOTE | 2019-12-20 02:00 | NUR ---
PATIENT AWAKE IN BED. APPEARS AGITATED. REMOVING ALL PILLOW AND AIR MATTRESS FROM BED. PULLING F/C. PATIENT IS ALSO RESTLESS. PATIENT GIVEN ATIVAN 1MG IV PRN FOR AGITATION. VSS. WILL CONTINUE TO MONITOR. BED ALARM ON. ALL NEEDS ATTENDED. Addendum: 12/20/19 at 0554 by ELODIA NOLAND LVN CLARIFICATION. PATIENT WAS GIVEN ATIVAN 1 MG IV AT 0225.
[2019-12-20] MEDS: IV D5 1/2 NS 1000 ML 1,000 ML IV PRN (02:19)
[2019-12-20] MEDS: LORAZEPAM 2 MG/1 ML VIAL IV PRN ×4 (02:25→18:38)
[2019-12-20 04:00] VITALS: BP 128/78
--- NOTE | 2019-12-20 05:54 | NUR ---
PATIENT ASLEEP IN BED. IVF INFUSING WELL. VS WNL. BED ALARM ON. CALL LIGHT IN REACH. ALL NEEDS ATTENDED. WILL CONTINUE TO MONITOR AND ASSESS.
[2019-12-20] MEDS: PANTOPRAZOLE SODIUM 40 MG TABLET.DR PO SCH (06:02)
[2019-12-20 06:46] LABS: MAGNESIUM 1.8 mg/dL (1.8-2.4); PHOSPHOROUS 3.4 mg/dL (2.5-4.9); POTASSIUM 3.3 mmol/L (3.5-5.1)
[2019-12-20 06:56] LABS: BASOPHILS % (AUTO) 0.3 % (0.0-2.0); EOSINOPHILS # (AUTO) 0.1 K/uL (0.0-0.7); EOSINOPHILS % (AUTO) 1.4 % (0.0-7.0); HEMATOCRIT 37.3 % (36.7-47.1); HEMOGLOBIN 12.7 g/dL (12.5-16.3); LYMPHOCYTES # (AUTO) 1.4 K/uL (20.0-40.0); LYMPHOCYTES % (AUTO) 17.5 % (20.5-51.5); MEAN CORPUSCULAR HEMOGLOBIN 30.8 uug (23.8-33.4); MEAN CORPUSCULAR HGB CONC 34 g/dL (32.5-36.3); MEAN CORPUSCULAR VOLUME 90.2 fL (73.0-96.2); MONOCYTES # (AUTO) 0.8 K/uL (2.0-10.0); MONOCYTES % (AUTO) 9.4 % (0.0-11.0); NEUTROPHILS # (AUTO) 5.7 K/uL (1.8-8.9); NEUTROPHILS % (AUTO) 71.4 % (38.5-71.5); PLATELET COUNT (AUTO) 127 K/uL (152-348); RED BLOOD CELL COUNT(AUTO) 4.13 MIL/uL (4.06-5.63)
[2019-12-20 08:41] VITALS: BP 105/54
[2019-12-20] MEDS: ASPIRIN 300 MG RECTAL SUPP RC SCH (09:00)
[2019-12-20 09:09] LABS: *WEST NILE CSF IGG Negative (Negative)
[2019-12-20] MEDS: levETIRAcetam IV 1,000 MG in IV DEXTROSE 5% 100 ML IV SCH ×2 (09:46→22:11)
[2019-12-20] MEDS: ONDANSETRON 4 MG/2 ML VIAL IV PRN ×2 (09:46→21:32)
[2019-12-20] MEDS: levETIRAcetam IV 500 MG in IV DEXTROSE 5% 100 ML IV SCH ×2 (10:04→22:16)
--- NOTE | 2019-12-20 10:23 | NUR ---
SITTING UP IN BED. INITIATING CONVERSATION WHEN I GO TO THE ROOM TO HAND IV MEDS. SPEECH CLEAR. ZOFRAN GIVEN FOR EMESIS. ATIVAN GIVEN FOR AGITATION HITTING BED WITH SIDE RAILS. NOW SLEEPING. KRIS TX WELL AT THIS TIME. REFUSED ASA SUPPOSITORY FOR THIS AM
[2019-12-20 11:07] LABS: *WEST NILE CSF IGM Negative (Negative)
[2019-12-20 12:11] VITALS: BP 124/78
[2019-12-20] MEDS: POTASSIUM CHLORIDE 50 ML IV SCH ×2 (13:28→18:37)
[2019-12-20] MEDS ORDERED: GADOTERIDOL 279.3 MG/ML, 10 ML VIAL IV ONE (14:41)
[2019-12-20 16:05] VITALS: BP 125/77
--- NOTE | 2019-12-20 19:57 | NUR ---
Received patient awake and alert in bed, staring at ceiling with flat affect. 1:1 sitter at bedside for safety. Refusing to speak, but asked if wants to drink or eat anything shakes his head no. Asked patient to follow simple commands, but refuses and stares back up at ceiling. IVF running on the left upper midline. Verduzco cath intact and draining well. Patient is to have NGT insertion, but per morning nurse, patient was getting agitated and gave Ativan, will try to insert later. Safety measures initiated. Bed is low and locked, call light within reach, bed alarm on. Will continue to monitor.
[2019-12-20 20:00] VITALS: BP 142/96
--- NOTE | 2019-12-20 20:35 | NUR ---
Received patient in bed. awake but not talking, interacting only by shaking his head. Flat affect. No acute distress or SOB was noted. Not seems on pain at this time. On room air. Physical assessment done. safety measures maintain, fall prevention observed. Skin assessed. seizure precaution maintained. PICC line in left upper arm, no sign of inflammation. Verduzco catheter in place draining well. Bed in locked and low position, side rails up x2 for safety, bed alarm on. Call light and frequently using items within reach. Continue to monitor.
[2019-12-20] MEDS: SIMVASTATIN 10 MG TABLET PO SCH (21:00)
--- NOTE | 2019-12-20 21:35 | NUR ---
Patient showed signs of nausea and emesis. Zofran 4 mg Iv was administered. Continue to monitor.
[2019-12-20] MEDS: HALOPERIDOL LACTATE 5 MG/1 ML VIAL IM PRN (22:07)
--- NOTE | 2019-12-20 22:10 | NUR ---
Patient started to get agitated. Haldol 5 mg IM injected to calm the patient. Continue to monitor.
--- NOTE | 2019-12-20 22:45 | NUR ---
NG tube was inserted and connected to the intermittent suctioning. Greenish liquid started draining. CXR was done and confirmed the NG Tube placement. Continue to monitor.
[2019-12-21 04:00] VITALS: BP 128/85
[2019-12-21] MEDS: PANTOPRAZOLE SODIUM 40 MG TABLET.DR PO SCH (06:38)
--- NOTE | 2019-12-21 06:39 | NUR ---
Changed the NG suctioning container and emptied 1200 ml dark greenish liquid. Continue to monitor and will endorse to the day shift nurse.
--- NOTE | 2019-12-21 06:42 | NUR ---
Patient refused Protonix 40 mg tab. Risk and benefits explained. Offered two times, still refused. Continue to monitor.
[2019-12-21 08:00] VITALS: BP 140/63
--- NOTE | 2019-12-21 08:03 | NUR ---
Patient received in room awake, in No acute distress, Pt. in room air. shift report received from overnight cashier, Patient been having N/V, patient vomited x1 at the beginning of the shift. Patient with NG tube in place with intermittent suctioning and draining well. NO c/o pain at this time. On IV hydration of D5 1/2 NS running at 75ml/hr. Mid line on left upper arm intact and patent. Zofran 4mg/2ml IV administered for N/V. F/C in place and draining with deysi yellow urine. Patient with one to one nurse for monitoring. Skin intact, kept clean and dry. Safety needs in place and will continue with care.
[2019-12-21] MEDS: ONDANSETRON 4 MG/2 ML VIAL IV PRN (08:07)
--- NOTE | 2019-12-21 09:00 | NUR ---
Patient NPO per ANALYTICS LEADER, aware of situation. Dietary informed.
[2019-12-21] MEDS: levETIRAcetam IV 1,000 MG in IV DEXTROSE 5% 100 ML IV SCH ×2 (09:10→21:12)
[2019-12-21] MEDS: ASPIRIN 300 MG RECTAL SUPP RC SCH (09:12)
[2019-12-21] MEDS: LORAZEPAM 2 MG/1 ML VIAL IV PRN ×2 (09:45→23:09)
--- NOTE | 2019-12-21 10:00 | NUR ---
Patient noted seizing by assigned one to one STORE GROUP MANAGER around 09:35 and called for help; Patient for about 1-2 seconds, monitored closely, VS checked after patient stopped convulsing, O2 at 98% in RA, P-88, B/P- 140/79. Seizure precautions in place, monitored closely. Informed Nursing protective signal operations supervisor, administered Ativan 0.5ml as ordered. Patient also on Keppra IV administered as ordered. CTRS Felipe aware. Patient's also aware. Patient resting at this time, HOB elevated for precaution, intermittent suction still on going. NO acute distress and will continue with care.
[2019-12-21] MEDS: levETIRAcetam IV 500 MG in IV DEXTROSE 5% 100 ML IV SCH ×2 (10:09→22:02)
[2019-12-21] MEDS: IV D5 1/2 NS 1000 ML 1,000 ML IV PRN (13:07)
--- NOTE | 2019-12-21 13:28 | NUR ---
Patient awake and resting comfortably, IV hydration still running, left upper arm midline patent and intact. NG suctioning running intermittently. No episodes of seizures noted at this time. Patient on one to one monitoring. Safety measures in place and will continue with care.
[2019-12-21 16:00] VITALS: BP 139/84
--- NOTE | 2019-12-21 19:18 | NUR ---
Patient with no change of condition for the rest of the shift. VS stable. IV hydration running. Patient seen by DELIVERY ARCHITECT. Pt. radiology at this time for HIAS procedure accompanied by one to one nurse. All other needs attended, safety measures in place, endorsed to next shift and will continue with care.
--- NOTE | 2019-12-21 20:12 | NUR ---
Went down to radiology because IV was beeping, patient receiving HIDA scan. Awake and alert, midline on the left upper arm is intact and running IVF. 1:1 sitter in room. No distress noted. NGT intact.
[2019-12-21] MEDS: SIMVASTATIN 10 MG TABLET PO SCH (21:00)
--- NOTE | 2019-12-21 21:11 | NUR ---
Patient returned from radiology
--- NOTE | 2019-12-21 21:52 | NUR ---
Changed patient suction tubing from day shift, noted with brown secretions of 600ml. Continued patient on low intermittent suctioning.
[2019-12-21 21:55] VITALS: BP 109/90
[2019-12-21] MEDS: METOCLOPRAMIDE HCL 10 MG/2 ML VIAL IV PRN (22:19)
[2019-12-22] MEDS: IV D5 1/2 NS 1000 ML 1,000 ML IV PRN (04:31)
[2019-12-22] MEDS: METOCLOPRAMIDE HCL 10 MG/2 ML VIAL IV PRN (04:32)
[2019-12-22 05:03] VITALS: BP 138/80
[2019-12-22] MEDS: PANTOPRAZOLE SODIUM 40 MG TABLET.DR PO SCH (06:06)
--- NOTE | 2019-12-22 06:37 | NUR ---
Patient still nonverbal, but able to follow commands. 1:1 sitter for safety. Patient on low intermittent suctioning. 625mL output. Verduzco cath intact. IVF running on left upper midline. Reglan given x2 for hiccups and Ativan give x1 for restlessness. Safety measures given. Will endorse to next shift.
[2019-12-22 08:00] VITALS: BP 119/77
[2019-12-22] MEDS ORDERED: METOCLOPRAMIDE HCL 10 MG/2 ML VIAL IV PRN (08:00)
[2019-12-22] MEDS ORDERED: chlorproMAZINE 50 MG/2 ML AMPUL IM ONE (08:00)
--- NOTE | 2019-12-22 08:00 | NUR ---
received pt. resting in bed. Pt. verbally replies when asked questions Pt. is able to follow commands. NG tube in place in R Nare. Patient on low intermittent suctioning. Dark brown fluid. Verduzco cath intact. IVF running on left upper midline. Pt. is noted with hiccups. COATER SLATE aware and ordered medication will give. Safety measures in place. call light within reach. Will continue to monitor pt.
[2019-12-22 08:17] LABS: BASOPHILS % (AUTO) 0.3 % (0.0-2.0); EOSINOPHILS # (AUTO) 0.1 K/uL (0.0-0.7); EOSINOPHILS % (AUTO) 1.1 % (0.0-7.0); HEMATOCRIT 39.3 % (36.7-47.1); HEMOGLOBIN 13.5 g/dL (12.5-16.3); LYMPHOCYTES % (AUTO) 9.9 % (20.5-51.5); MEAN CORPUSCULAR HEMOGLOBIN 30.5 uug (23.8-33.4); MEAN CORPUSCULAR HGB CONC 34 g/dL (32.5-36.3); MEAN CORPUSCULAR VOLUME 88.9 fL (73.0-96.2); MONOCYTES # (AUTO) 1.1 K/uL (2.0-10.0); MONOCYTES % (AUTO) 10.1 % (0.0-11.0); NEUTROPHILS # (AUTO) 8.2 K/uL (1.8-8.9); NEUTROPHILS % (AUTO) 78.6 % (38.5-71.5); PLATELET COUNT (AUTO) 157 K/uL (152-348); RED BLOOD CELL COUNT(AUTO) 4.42 MIL/uL (4.06-5.63); WHITE BLOOD COUNT (AUTO) 10.5 K/uL (3.6-10.2)
[2019-12-22 08:29] LABS: CREATININE 0.9 mg/dL (0.6-1.3); MAGNESIUM 1.7 mg/dL (1.8-2.4); PHOSPHOROUS 4.3 mg/dL (2.5-4.9); POTASSIUM 3.1 mmol/L (3.5-5.1)
[2019-12-22] MEDS: ASPIRIN 300 MG RECTAL SUPP RC SCH (09:02)
[2019-12-22] MEDS: levETIRAcetam IV 1,000 MG in IV DEXTROSE 5% 100 ML IV SCH ×2 (09:02→20:46)
[2019-12-22] MEDS: levETIRAcetam IV 500 MG in IV DEXTROSE 5% 100 ML IV SCH ×2 (09:36→21:41)
[2019-12-22] MEDS: POTASSIUM CHLORIDE 50 ML IV SCH ×2 (10:50→13:30)
[2019-12-22 12:00] VITALS: BP 108/58
[2019-12-22 12:56] LABS: BILIRUBIN,DIRECT 0.3 mg/dL (0.0-0.2); BILIRUBIN,TOTAL 0.9 mg/dL (0.2-1.0); TOTAL PROTEIN, SERUM 6.7 g/dL (6.4-8.2)
[2019-12-22] MEDS: ONDANSETRON 4 MG/2 ML VIAL IV PRN ×2 (14:33→15:55)
[2019-12-22] MEDS: MAGNESIUM SULFATE/D5W 100 ML IV SCH ×2 (14:48→16:49)
[2019-12-22 16:00] VITALS: BP 126/89
[2019-12-22] MEDS: AZTREONAM 1 G in IV NORMAL SALINE 50 ML IV SCH (18:04)
--- NOTE | 2019-12-22 18:58 | NUR ---
Pt. is touching IV and locking it when I am not in room causing IV to not run properly. This has happened multiple times. Informed charge nurse. Will continue to monitor pt.
[2019-12-22 20:00] VITALS: BP 150/91
[2019-12-22] MEDS: SIMVASTATIN 10 MG TABLET PO SCH (20:31)
[2019-12-23] MEDS: AZTREONAM 1 G in IV NORMAL SALINE 50 ML IV SCH ×3 (00:46→17:03)
--- NOTE | 2019-12-23 02:45 | NUR ---
Received patient in bed. Awake not talking, but more interacting by body language this time. Flat affect. No acute distress or SOB was noted. Not seems on pain. On room air. Physical assessment done. safety measures maintain, fall prevention observed. Skin assessed. seizure precaution maintained. Mid line in left upper arm, no sign of inflammation, IV fluid running at 75 ml/hour. Verduzco catheter in place draining well. Keppra and IV antibiotic Azactam 1 G administered and tolerated well. Bed in locked and low position, side rails up x2 for safety, bed alarm on. Call light and frequently using items within reach. Continue to monitor and will endorse to day shift nurse.
[2019-12-23 04:37] VITALS: BP 140/84
[2019-12-23] MEDS: PANTOPRAZOLE SODIUM 40 MG TABLET.DR PO SCH (06:27)
[2019-12-23] MEDS: ASPIRIN 300 MG RECTAL SUPP RC SCH (08:33)
[2019-12-23] MEDS: IV D5 1/2 NS 1000 ML 1,000 ML IV PRN (08:34)
[2019-12-23] MEDS: levETIRAcetam IV 1,000 MG in IV DEXTROSE 5% 100 ML IV SCH ×2 (09:46→20:45)
[2019-12-23] MEDS: levETIRAcetam IV 500 MG in IV DEXTROSE 5% 100 ML IV SCH ×2 (10:12→21:08)
[2019-12-23 12:26] VITALS: BP 137/85
[2019-12-23 15:36] VITALS: BP 130/72
--- NOTE | 2019-12-23 18:50 | NUR ---
PATIENT CALM AND COMFORTABLE WITH NO SIGNS OF DISTRESS;PATIENT AT BASELINE MENTAL STATUS. REPORT GIVEN TO ONCOMING NURSE.
--- NOTE | 2019-12-23 19:45 | NUR ---
Received patient asleep. Patient shows no signs or symptoms of distress at this time. Vital signs stable. Patient is currently NPO. As per day shift nurse, removed NGT today and refused reinsertion. Bed set to lowest position. Call light within reach. Will continue to monitor patient.
[2019-12-23 20:17] VITALS: BP 134/86
[2019-12-23] MEDS: SIMVASTATIN 10 MG TABLET PO SCH (20:42)
[2019-12-24] MEDS: IV D5 1/2 NS 1000 ML 1,000 ML IV PRN ×2 (00:47→19:30)
[2019-12-24 04:51] VITALS: BP 137/89
[2019-12-24] MEDS: PANTOPRAZOLE SODIUM 40 MG TABLET.DR PO SCH (05:52)
[2019-12-24 06:40] LABS: BASOPHILS # (AUTO) 0.1 K/uL (0.0-8.0); BASOPHILS % (AUTO) 0.6 % (0.0-2.0); EOSINOPHILS # (AUTO) 0.1 K/uL (0.0-0.7); EOSINOPHILS % (AUTO) 1.8 % (0.0-7.0); HEMATOCRIT 40.9 % (36.7-47.1); HEMOGLOBIN 14.5 g/dL (12.5-16.3); MEAN CORPUSCULAR HEMOGLOBIN 31.6 uug (23.8-33.4); MEAN CORPUSCULAR HGB CONC 35 g/dL (32.5-36.3); MEAN CORPUSCULAR VOLUME 89.3 fL (73.0-96.2); MONOCYTES # (AUTO) 0.6 K/uL (2.0-10.0); NEUTROPHILS # (AUTO) 6.4 K/uL (1.8-8.9); NEUTROPHILS % (AUTO) 78.6 % (38.5-71.5); PLATELET COUNT (AUTO) 194 K/uL (152-348); RED BLOOD CELL COUNT(AUTO) 4.57 MIL/uL (4.06-5.63); WHITE BLOOD COUNT (AUTO) 8.1 K/uL (3.6-10.2)
--- NOTE | 2019-12-24 06:49 | NUR ---
Patient shows no signs or symptoms of distress throughout the shift. Vital signs stable. Bed set to lowest position. Call light within reach. Will endorse patient to day shift nurse in stable condition.
[2019-12-24 07:00] LABS: CREATININE 0.8 mg/dL (0.6-1.3); MAGNESIUM 2.1 mg/dL (1.8-2.4); POTASSIUM 3.7 mmol/L (3.5-5.1)
[2019-12-24 07:54] VITALS: BP 132/91
[2019-12-24] MEDS: ASPIRIN 300 MG RECTAL SUPP RC SCH ×3 (08:47→08:53)
[2019-12-24] MEDS: AZTREONAM 1 G in IV NORMAL SALINE 50 ML IV SCH ×4 (08:47→17:32)
[2019-12-24] MEDS: levETIRAcetam IV 1,000 MG in IV DEXTROSE 5% 100 ML IV SCH ×2 (11:35→21:15)
[2019-12-24] MEDS: levETIRAcetam IV 500 MG in IV DEXTROSE 5% 100 ML IV SCH ×2 (12:02→21:51)
[2019-12-24 12:14] LABS: BILIRUBIN,DIRECT 0.2 mg/dL (0.0-0.2); BILIRUBIN,TOTAL 0.8 mg/dL (0.2-1.0); TOTAL PROTEIN, SERUM 6.9 g/dL (6.4-8.2)
--- NOTE | 2019-12-24 15:03 | NUR ---
PATIENT CALM AND COMFORTABLE RESTING IN BED WITH NO SIGNS OF DISTRESS; PATIENT WILL CONTINUE TO BE MONITORED .
--- NOTE | 2019-12-24 15:29 | NUR ---
Called and spoke with Yumiko and updated her on the conversation with Dr. Crenshaw and updated her on the non-accepting patient status at [facility]. And that [facility] is still willing to accept the pt. Per Yumiko: she would like a transfer to [place] or [place]. CM will continue to follow up with Yumiko's request.
[2019-12-24 15:49] VITALS: BP 128/72
--- NOTE | 2019-12-24 18:31 | NUR ---
PATIENT AT BASELINE MENTAL STATUS; PATIENT WITH STABLE VITAL SIGNS.
[2019-12-24 20:10] VITALS: BP 143/90
[2019-12-24] MEDS: SIMVASTATIN 10 MG TABLET PO SCH (21:00)
--- NOTE | 2019-12-24 22:24 | NUR ---
awake but non verbal. patient admitted for altered level of consciousness. NPO status maintained. Left upper midline intact, IVF's infusing well. On seizure precautions.Patient on IV Kepra, tolerated well. VSS. Fall precautions maintained. Verduzco catheter intact draining yellow urine. Will monitor patient. Patient unresponsive to painful stimuli, flat affect.
[2019-12-25] MEDS: AZTREONAM 1 G in IV NORMAL SALINE 50 ML IV SCH ×3 (00:15→18:41)
[2019-12-25] MEDS: ONDANSETRON 4 MG/2 ML VIAL IV PRN (06:15)
[2019-12-25 06:44] VITALS: BP 132/76
[2019-12-25] MEDS: PANTOPRAZOLE SODIUM 40 MG TABLET.DR PO SCH (06:53)
--- NOTE | 2019-12-25 07:00 | NUR ---
End of shift note: Patient vomitted x1 this am with moderate amount of vomitus noted. Zofran given as ordered. Will monitor for further vomiting. Relief noted. Kept comfortable . Verduzco catheter intact draining yellow urine. I & O monitor. Fall precautions maintained.
[2019-12-25] MEDS: ASPIRIN 300 MG RECTAL SUPP RC SCH (09:00)
[2019-12-25] MEDS: IV D5 1/2 NS 1000 ML 1,000 ML IV PRN ×2 (10:00→22:25)
[2019-12-25 12:00] VITALS: BP 142/61
[2019-12-25] MEDS: levETIRAcetam IV 1,000 MG in IV DEXTROSE 5% 100 ML IV SCH ×2 (12:14→21:12)
--- NOTE | 2019-12-25 16:17 | NUR ---
Was informed that the patient needs continuous EEG. Spoke to Bri from [facility] [ ] and she stated that they do not do continuous EEG. Recommended [facility]. Spoke to Xiomara from the [facility] [place] [facility] [ ] and she stated they are not contracted with [facility]. She recommended doing a MAC Transfer. Initiated MAC transfer - ; and updated the hot car chargerKendra.
[2019-12-25 16:20] VITALS: BP 138/56
--- NOTE | 2019-12-25 19:18 | NUR ---
Patient in stable condition with no signs of distress; patient with stable vital signs throughout shift;l ; patient calm and comfortable upon final assessment. patient at baseline mental status. consent given by over the phone for ct guided cather fluid drainage along with second rn for witness.
--- NOTE | 2019-12-25 20:00 | NUR ---
Received patient in bed awake, nonverbal. Patient only answers some questions by nodding or shaking his head. Patient refused VS to be checked, offered multiple times but patient strongly refused by shaking his head. Charge nurse made aware
[2019-12-25] MEDS: SIMVASTATIN 10 MG TABLET PO SCH (21:00)
[2019-12-26] MEDS: AZTREONAM 1 G in IV NORMAL SALINE 50 ML IV SCH ×3 (01:44→17:00)
[2019-12-26] MEDS: PANTOPRAZOLE SODIUM 40 MG TABLET.DR PO SCH (06:06)
--- NOTE | 2019-12-26 06:50 | NUR ---
Patient slept well, still non-verbal. Midline on IN intact and patent w/ IVF infusing. F/C intact and draining clear yellow urine. Refused VS again by shaking his head. Will endorse accordingly
[2019-12-26] MEDS: ASPIRIN 300 MG RECTAL SUPP RC SCH ×2 (09:00→09:20)
[2019-12-26] MEDS: levETIRAcetam IV 1,000 MG in IV DEXTROSE 5% 100 ML IV SCH ×2 (09:20→21:00)
--- NOTE | 2019-12-26 10:00 | NUR ---
Patient is awake, alert, non-verbal, on room air, not in any form of distress. He denies any pain or discomfort at this time. Due IV medications administered and tolerated well. Assisted patient with physical therapist to ambulate to the bathroom to wash face and brush teeth. Safety measures maintained. Call light placed within patient's reach.
[2019-12-26 11:10] VITALS: BP 123/76
--- NOTE | 2019-12-26 12:45 | NUR ---
Patient now noted to be alert, oriented x 2-3 verbally responsive, ambulatory. Patient requested to have lunch. Patient denies any pain or discomfort at this time. He refuses any procedure to be done like surgery. Informed Citlaly Escobedo CRM DYNAMICS DEVELOPER who ordered CT guided cholecystostomy drain placement. CRM DYNAMICS DEVELOPER ordered for patient to start on Clear liquid diet.
--- NOTE | 2019-12-26 13:10 | NUR ---
Received an order from DUNIA Escobedo to advance diet to regular diet.
--- NOTE | 2019-12-26 15:15 | NUR ---
Received a call Betzaida BERMUDEZ and updated her on the pt's continuous EEG however, the this pattern shop supervisor informed Betzaida that the pt is requesting to ate and has been noted to be walking around. Per Betzaida: she will note that the pt might be discharged from this hospital if the EEG is DC'd.
--- NOTE | 2019-12-26 19:10 | NUR ---
Patient refused due IV antibiotic, explained risks and benefits but patient still refused. Dr. Boogie made aware with no new order at this time. Endorsed accordingly to fast food shift lead nurse
--- NOTE | 2019-12-26 19:30 | NUR ---
PATIENT RECEIVED FROM MORNING NURSE. AAOX2. WALKING UP AND DOWN THE HALLWAY FOR 30 MINUTES.
[2019-12-26] MEDS: SIMVASTATIN 10 MG TABLET PO SCH (21:00)
--- NOTE | 2019-12-26 23:11 | NUR ---
received orders from dr. root regarding patient vomiting x3, refusing keppra IV and PO medications, and v/s tonight.
--- NOTE | 2019-12-26 23:12 | NUR ---
dr. root ordered to change IV Keppra medications to Keppra 1000 mg PO. aware patient refusing PO and IV medications tonight. will place orders and f/u with patient again. Addendum: 12/27/19 at 0345 by DELPHINE MON RN Keppra 1000mg PO q12h
--- NOTE | 2019-12-27 03:57 | NUR ---
patient AAOX2. no s/s of acute distress. refused all medications tonight. dr. evans aware. vomiting throughout the night about 10 ml. patient refused to take any zofran. will continue to monitor.
[2019-12-27] MEDS: PANTOPRAZOLE SODIUM 40 MG TABLET.DR PO SCH (06:31)
--- NOTE | 2019-12-27 06:49 | NUR ---
PATIENT REFUSED PROTONIX BEFORE PULLING FROM PYXIS. REFUSED MEDICATIONS ALL NIGHT AND THROUGHOUT SHIFT.
[2019-12-27] MEDS: ASPIRIN 300 MG RECTAL SUPP RC SCH (09:00)
[2019-12-27] MEDS: levETIRAcetam 500 MG TABLET PO SCH ×2 (09:00→20:17)
--- NOTE | 2019-12-27 10:30 | NUR ---
took over care from Angeli RN , pt awake alert, answering simple questions and communicating, walking in the hallway with singleton cath draining deysi urine, offered non skid socks to use but refused, denies of pain at this time, safety measures maintained
[2019-12-27 11:50] VITALS: BP 122/54
--- NOTE | 2019-12-27 13:00 | NUR ---
refused to talk to when she called, appetite fair, in bed at this time
--- NOTE | 2019-12-27 13:30 | NUR ---
ambulating in the hallway, seen by Dr Valencia- plan for d/c in am and to d/c areli
--- NOTE | 2019-12-27 13:35 | NUR ---
Dr Valencia told him the need to take his Keppra and risk of not taking it but pt refused to take it
--- NOTE | 2019-12-27 13:45 | NUR ---
singleton d/cd without problem- to monitor for voiding
--- NOTE | 2019-12-27 18:00 | NUR ---
refused dinner, walking in the hallway, no voiding yet, denies of pain, safety measures in place, all needs attended and met, no distress noted
[2019-12-27] MEDS: SIMVASTATIN 10 MG TABLET PO SCH (20:17)
--- NOTE | 2019-12-27 20:18 | NUR ---
pt in stable condition, ambulating, pt refused vitals and medications. Pt educated on the importance of taking his Kepra to prevent seizures, pt still refused.
--- NOTE | 2019-12-28 05:40 | NUR ---
No acute events overnight, pt sating at 95% on 2L, NC. No fever, no nausea and no vomiting. No BM during shift, pt treated for pain during shift, able to sleep comfortably in the night. Addendum: 12/28/19 at 0543 by TOR CORDERO RN Note Entered in error
--- NOTE | 2019-12-28 05:45 | NUR ---
No acute events overnight, pt voiding, still refusing vitals and medication. able to sleep during shift
[2019-12-28] MEDS: PANTOPRAZOLE SODIUM 40 MG TABLET.DR PO SCH (06:21)
[2019-12-28] MEDS: levETIRAcetam 500 MG TABLET PO SCH ×2 (09:00→20:14)
[2019-12-28] MEDS: ASPIRIN 300 MG RECTAL SUPP RC SCH (09:00)
--- NOTE | 2019-12-28 09:07 | NUR ---
Patient refused AM meds. Educated on risks and benefits of not taking medications, but still refused, and verbalized understanding. Pt stated "no drugs please."
--- NOTE | 2019-12-28 10:00 | NUR ---
pt refused to be tested or touched for NIHSS assessment.
--- NOTE | 2019-12-28 18:41 | NUR ---
Pt has been refusing everything the whole day. Refusing care from PROCUREMENT CLERK, refusing meds, food, assessments and refusing to talk to family members. Answers to only certain questions. Dr. Keagan mojica
--- NOTE | 2019-12-28 20:00 | NUR ---
RECEIVED PATIENT AWAKE, SITTING AT EDGE OF BED. ALERT TO SELF. VERY PASSIVE WHEN APPROACHED. REPORTED FROM CHILD CARE LEAD TEACHER THAT PATIENT REFUSED HS VITALS. NO S/S OF PAIN OR DISCOMFORT. NO RESP. DISTRESS NOTED. WILL CONTINUE TO MONITOR AND ASSESS PATIENT.
[2019-12-28] MEDS: SIMVASTATIN 10 MG TABLET PO SCH (20:15)
--- NOTE | 2019-12-28 20:45 | NUR ---
PATIENT REFUSED TO TAKE HS MEDICATIONS. DIRECTOR LABOR STANDARDS NOTIFIED.
--- NOTE | 2019-12-29 05:38 | NUR ---
PATIENT AWAKE IN BED. PASSIVE WHEN APPROACHED. REFUSED AM VITALS. TECHNICAL DOCUMENT WRITER NOTIFIED. WILL CONTINUE TO MONITOR AND ASSESS.
[2019-12-29] MEDS: PANTOPRAZOLE SODIUM 40 MG TABLET.DR PO SCH (06:07)
[2019-12-29] MEDS: ASPIRIN 300 MG RECTAL SUPP RC SCH (08:37)
[2019-12-29] MEDS: levETIRAcetam 500 MG TABLET PO SCH ×2 (08:37→21:00)
--- NOTE | 2019-12-29 19:04 | NUR ---
Pt received, assessed, no acute distress, minimal verbal expression, at times Pt refused to answer questions at all. Noncompliant with all routine medications, refusing VS to be taken, and refusing to eat. Pt's called inquiring about plan for D/C and if it can include going to a Rehab facility instead of straight home, she is worried about his lack of communication, specifically as it relates to her. Pt quickly jerked head away from phone when placed to ear to talk with . Pt ambulates steadily. Pt voided on room floor 4+ times, disregarding urinal placed directly in front of him and Pt teaching. Call light placed within reach. All safety measures implemented. Will continue to monitor and endorse.
--- NOTE | 2019-12-29 19:45 | NUR ---
Received patient awake but nonverbal. Patient shows no signs or symptoms of distress at this time. Patient is refusing vital signs and IV insertion. Bed set to lowest position. Side rails X2 are up. Call light within reach. Will continue to monitor patient.
--- NOTE | 2019-12-29 20:45 | NUR ---
Received report from SARATH Chirinos. Patient bed, sleeping, easy to arouse. Patient is non-verbal. Vitals stable. Patient shows no s/s of pain or acute distress at this time. Safety measures in place. Will continue with the plan of care.
[2019-12-29] MEDS: SIMVASTATIN 10 MG TABLET PO SCH (21:00)
--- NOTE | 2019-12-29 21:57 | NUR ---
Patient's 2100 prescribed medications such as Keppra (1000 mg) and Simvastatin (10 mg) refused to take. Charge nurse also aware.
[2019-12-30] MEDS: PANTOPRAZOLE SODIUM 40 MG TABLET.DR PO SCH (06:48)
--- NOTE | 2019-12-30 06:51 | NUR ---
Patient refused am meds and morning blood draw. Charge nurse aware. Will inform oncoming nurse.
--- NOTE | 2019-12-30 06:52 | NUR ---
Patient slept intermittently throughout the night. Patient is awake, but non-verbal. Patient refused all medications due at my shift. Patient refused blood draw as well. Patient has no s/s of acute distress or pain. Safety measures in place. Bed low and locked position. Call light within reach. Will endorse to the oncoming nurse accordingly.
[2019-12-30] MEDS: levETIRAcetam 500 MG TABLET PO SCH ×2 (09:00→21:00)
[2019-12-30] MEDS: ASPIRIN 300 MG RECTAL SUPP RC SCH (09:00)
--- NOTE | 2019-12-30 18:24 | NUR ---
PATIENT BASELINE THROUGH OUT SHIFT WITH NO SIGNS OF DISTRESS; PATIENT WITH STABLE VITAL SIGNS. PATIENT URINATED ON FLOOR MULTIPLE TIMES AND ONLY ATE HALF A LOAF OF BREAD FOR DINNER. PATIENT WALKS TO BATHROOM TO DRINK WATER. PATIENT HAS NO VERBAL RESPONSE . REPORT GIVEN TO ONCOMING NURSE.
--- NOTE | 2019-12-30 20:48 | NUR ---
Patient still non verbal. Patient has no s/s of pain or acute distress. Patient refused to eat dinner or snacks. Safety measures in place. Will continue with the plan of care.
[2019-12-30] MEDS: SIMVASTATIN 10 MG TABLET PO SCH (21:00)
--- NOTE | 2019-12-30 22:00 | NUR ---
Patient refused 2100 medications. Charge nurse aware.
[2019-12-31] MEDS: PANTOPRAZOLE SODIUM 40 MG TABLET.DR PO SCH (07:00)
--- NOTE | 2019-12-31 07:00 | NUR ---
Patient slept intermittently throughout the night. Patient still non-verbal. Patient has no s/s of acute distress or pain. Patient had 2 episodes of peeing on the floor. Patient refused to take medications due during my shift. Charge nurse aware. Safety measures in place. Bed low and locked in position. Call light within reach. Will endorse to the oncoming nurse accordingly.
[2019-12-31] MEDS: levETIRAcetam 500 MG TABLET PO SCH (08:48)
[2019-12-31] MEDS: HALOPERIDOL LACTATE 5 MG/1 ML VIAL IM PRN (08:53)
[2019-12-31] MEDS: ASPIRIN 300 MG RECTAL SUPP RC SCH (09:00)
--- NOTE | 2019-12-31 18:37 | NUR ---
patient at baseline mental status; patient not medication compliant; patient with stable vital signs.
[2019-12-31] MEDS: levETIRAcetam IV 1,000 MG in IV DEXTROSE 5% 100 ML IV SCH ×2 (21:00→21:12)
[2019-12-31] MEDS: SIMVASTATIN 10 MG TABLET PO SCH ×2 (21:00→21:12)
--- NOTE | 2019-12-31 21:20 | NUR ---
PATIENT RECEIVED SITTING IN BED AND NON VERBAL. PATIENT DOES NOT RESPOND TO QUESTIONS. WHEN ASKED TO DO V/S PATIENT CLENCHES TEETH AND CLOSES MOUTH TIGHTER AND BECOMES RIGID ON HIS ARM. UNABLE TO DO V/S. NO IV SITE FOUND AT BEGINNING OF SHIFT. PATIENT HAS PREVIOUS HISTORY OF MULTI PERIPHERAL IV ATTEMPTS. WILL CALL ELECTRONICS MANUFACTURER FOR ASSISTANCE IN PLACING IV FOR ADMINISTRATION OF KEPPRA DUE TONIGHT. PATIENT REFUSED SIMVASTATIN AND CLOSED HIS MOUTH TIGHTER WHEN EMPLANING TO GIVE SIMVASTATIN. SAFETY MEASURES IN PLACE. NO N/V AT THIS TIME. NO ACUTE DISTRESS NOTED. WILL CONTINUE TO MONITOR. Addendum: 12/31/19 at 2125 by DELPHINE MON RN CORRECTION: PATIENT REFUSED SIMVASTATIN AND CLOSED HIS MOUTH TIGHTER WHEN EXPLANING TO GIVE SIMVASTATIN.
--- NOTE | 2019-12-31 21:38 | NUR ---
DR. PAULY CHARLES NOTIFIED FOR PATIENT REFUSING V/S AND PO MEDS TONIGHT. ORDERS TO PLACE MIDLINE ON PATIENT.
--- NOTE | 2019-12-31 21:41 | NUR ---
SALESPERSON NEW CARS CONTACTED FOR ORDER OF MIDLINE.
--- NOTE | 2019-12-31 22:36 | NUR ---
BANKRUPTCY LAW SPECIALIST JUST INFORMED ME THAT MIDLINE WILL NOT BE ABLE TO BE INSERTED UNTIL TOMORROW MORNING. NO ETA PROVIDED. KEPPRA WILL NOT BE ABLE TO BE ADMINISTERED TONIGHT. DR. PAULY CHARLES NOTIFIED.
[2020-01-01 04:18] VITALS: BP 117/59
--- NOTE | 2020-01-01 04:39 | NUR ---
PATIENT SLEEPING INTERMITTENTLY THROUGHOUT THE NIGHT. CONTINUING TO PEE IN THE ROOM REGARDLESS OF DIRECTING PATIENT TO PEE IN THE RESTROOM AT BEGINNING OF SHIFT. WHEN TURNING OFF THE LIGHT FOR PATIENT TO SLEEP PATIENT WAKES UP TO TURN OFF THE LIGHT. V/S TAKEN THIS MORNING AND STABLE. THIS MORNING PATIENT USE THE RESTROOM. SAFETY PRECAUTIONS PROVIDED. NO N/V ON MY SHIFT. WILL CONTINUE TO MONITOR.
[2020-01-01] MEDS: PANTOPRAZOLE SODIUM 40 MG TABLET.DR PO SCH ×2 (06:09→06:10)
--- NOTE | 2020-01-01 06:10 | NUR ---
EDUCATED PATIENT ON PROTONIX THIS MORNING. PATIENT REFUSED MEDS DESPITE EDUCATION BY SHAKING HIS HEAD AND MOUTHING THE WORD "NO" WITH NO SOUND.
[2020-01-01 08:00] VITALS: BP 148/67
[2020-01-01] MEDS: ASPIRIN 300 MG RECTAL SUPP RC SCH (09:00)
[2020-01-01] MEDS: HALOPERIDOL LACTATE 5 MG/1 ML VIAL IM PRN (10:46)
[2020-01-01] MEDS: BENZTROPINE MESYLATE 2 MG/2 ML AMPUL IM PRN (10:50)
--- NOTE | 2020-01-01 11:37 | NUR ---
PATIENT IS REFUSING HIS PO AND RECTAL MEDS, WAITING FOR MID LINE INSERTION, EXAMINED BY DR SUÁREZ, RECOMMENDED TO USE HALDOL ORDERED, INJECTED HALDOL, TRIED TO START IV LINE, PATIENT RESISTED. Addendum: 01/01/20 at 1140 by GABI HUITRON RN RN UNABLE TO COLLECT URINE SAMPLE WELL, DUE TO PATIENT REFUSAL
--- NOTE | 2020-01-01 12:15 | NUR ---
CALLED DR ZUNIGA FOR SECOND OPINION FOR PATIENT PSYCH EVAL
[2020-01-01 13:26] LABS: BASOPHILS % (AUTO) 0.5 % (0.0-2.0); EOSINOPHILS # (AUTO) 0.1 K/uL (0.0-0.7); EOSINOPHILS % (AUTO) 1.3 % (0.0-7.0); HEMATOCRIT 39.5 % (36.7-47.1); HEMOGLOBIN 13.5 g/dL (12.5-16.3); LYMPHOCYTES % (AUTO) 14.1 % (20.5-51.5); MEAN CORPUSCULAR HEMOGLOBIN 30.6 uug (23.8-33.4); MEAN CORPUSCULAR HGB CONC 34 g/dL (32.5-36.3); MEAN CORPUSCULAR VOLUME 89.6 fL (73.0-96.2); MONOCYTES # (AUTO) 0.5 K/uL (2.0-10.0); MONOCYTES % (AUTO) 7.6 % (0.0-11.0); NEUTROPHILS # (AUTO) 5.4 K/uL (1.8-8.9); NEUTROPHILS % (AUTO) 76.5 % (38.5-71.5); PLATELET COUNT (AUTO) 210 K/uL (152-348); RED BLOOD CELL COUNT(AUTO) 4.41 MIL/uL (4.06-5.63)
[2020-01-01 13:32] LABS: ALANINE AMINOTRANSFERASE 77 U/L (16-63); ALKALINE PHOSPHATASE 79 U/L (50-136); ASPARTATE AMINOTRANSFERASE 31 U/L (15-37); BILIRUBIN,TOTAL 0.7 mg/dL (0.2-1.0); CARBON DIOXIDE 22 mmol/L (21-32); CHLORIDE 101 mmol/L (98-107); CREATININE 0.8 mg/dL (0.6-1.3); GLUCOSE 109 mg/dL (74-106); MAGNESIUM 1.9 mg/dL (1.8-2.4); PHOSPHOROUS 4.2 mg/dL (2.5-4.9); POTASSIUM 3.4 mmol/L (3.5-5.1); UREA NITROGEN, BLOOD 8 mg/dL (7-18)
[2020-01-01] MEDS: levETIRAcetam IV 1,000 MG in IV DEXTROSE 5% 100 ML IV SCH ×2 (13:37→23:06)
--- NOTE | 2020-01-01 13:38 | NUR ---
OKAYED BY PHARMACIST AND MD TO GIVE KEPPRA NOW, MIDLINE INSERTED [id number]
[2020-01-01] MEDS ORDERED: POTASSIUM CHLORIDE 50 ML IV SCH (15:15)
[2020-01-01 16:00] VITALS: BP 134/70
[2020-01-01] MEDS: IV D5 1/2 NS 1000 ML 1,000 ML IV PRN (16:19)
--- NOTE | 2020-01-01 16:23 | NUR ---
A call was received from Leanna from [facility] and stated that she would like to assess the patient. Per Leanna: she will call the pt's in case the pt is accepted, in regards to discharge planning. This java groovy developer explained that the pt could be assessed via Zoom conference and Leanna agreed and requested tomorrow 01/02/20 around 11am. Leanna will call back tomorrow in the morning to confirm
--- NOTE | 2020-01-01 17:32 | NUR ---
PATIENT DOES NOT COMMUNICATE VERBALLY, HOWEVER SHKES HIS HEAD FOR YES OR NO. NO SOB, RESP EVEN NONLABORED, SKIN WARM AND DRY TO TOUCH, ROM ACTIVE TO ALL EXTREMITIES, AMBULATES INDEPENDENTLY,NO DRIFT OR FALL TO UPPER OR LOWER EXTREMITIES, NOT WILLING TO EAT MEALS, REFUSED ALL HIS MEALS, HOWEVER DRANK WATER AND ENSURE. IV FLUIDS ARE RUNNING AT 75CC/HR. CONTINENT OF BOWEL AND BLADDER, TRY TO TURN OFF THE IV FLUIDS, CLOSELY MONITOR.
[2020-01-01 20:03] VITALS: BP 124/54
[2020-01-01] MEDS: risperiDONE 0.5 MG TABLET PO SCH (20:37)
[2020-01-01] MEDS: SIMVASTATIN 10 MG TABLET PO SCH (20:37)
--- NOTE | 2020-01-01 21:12 | NUR ---
awake upon initial rounds. patient nonverbal. Refused to take po meds. IVF's infusing well via right upper midline. No signs of agitation or restlessness. Seizure precautions maintained. VSS. Will monitor patient. Fall precautions maintained. Bed alarm on.
[2020-01-02 04:03] VITALS: BP 142/58
[2020-01-02] MEDS: IV D5 1/2 NS 1000 ML 1,000 ML IV PRN (05:19)
[2020-01-02] MEDS: PANTOPRAZOLE SODIUM 40 MG TABLET.DR PO SCH (06:16)
--- NOTE | 2020-01-02 06:25 | NUR ---
End of shift notes: Uneventful night. Patient catatonic , flat affect. Awake but nonverbal. Still noncompliant with meds. IVF's infusing thru right upper midline. IV ABT given as well. No side effects noted. Voiding but unable to get urine sample. Patient ambulates to without calling nurse. Will monitor patient. VSS.
[2020-01-02 08:46] VITALS: BP 98/68
[2020-01-02] MEDS: risperiDONE 0.5 MG TABLET PO SCH (09:00)
[2020-01-02] MEDS: levETIRAcetam IV 1,000 MG in IV DEXTROSE 5% 100 ML IV SCH (09:00)
[2020-01-02] MEDS: ASPIRIN 300 MG RECTAL SUPP RC SCH (09:00)
--- NOTE | 2020-01-02 10:16 | NUR ---
Patient refuse to take medicine despite of encouragement and education. Patient walks in the hallway without agitation and return back to bed right away. Patient refuse breakfast and request fish to take the medicine. Patient verbalize, he wants to go home. DUNIA Ayers notified. not in distress. Patient seen and examined by DUNIA Ayers and advice patient to take patient medicines and meals if he wants to go home. Patient agreed. will continue monitor for safety.
[2020-01-02] MEDS: BENZTROPINE MESYLATE 2 MG/2 ML AMPUL IM PRN (10:42)
[2020-01-02] MEDS: HALOPERIDOL LACTATE 5 MG/1 ML VIAL IM PRN (10:42)
--- NOTE | 2020-01-02 12:50 | NUR ---
Patient remove midline on right upper arm. Patient was interviewed if he remove the line, no verbal response noted. QUALITY MANAGEMENT COORDINATOR Andria replace Keppra IV to PO. will continue monitor
[2020-01-02] MEDS: levETIRAcetam 500 MG TABLET PO SCH ×2 (12:58→20:26)
--- NOTE | 2020-01-02 15:38 | NUR ---
Spoke with patient regarding reason behind him removing midline. Patient states he does not want medications and wants to "get better naturally." Education provided regarding the risks and benefits of medications prescribed. Patient acknowledged and stated that he understood. Patient now agrees that he "will try the medicine" and agreed take PO.
[2020-01-02 15:50] VITALS: BP 130/70
--- NOTE | 2020-01-02 16:06 | NUR ---
The patient started talking and eating food today. He had a Zoom evaluation this morning with Leanna Sherman [ ; ], from [facility]. According to Leanna, their DON, reviewed and clinically approved the case. They are awaiting authorization from the patient's insurance company. They have already contacted the patient's as well.
--- NOTE | 2020-01-02 16:08 | NUR ---
Called Betzaida from [facility] @ [phone] to inform her that Leanna from [facility] had a zoom conference earlier today with the pt for assessment and has accepted the pt.. Betzaida was updated that Leanna will try obtaining authorization for the pt. Per Leanna: they are willing to accept the pt tomorrow if auth is obtain.
[2020-01-02 20:00] VITALS: BP 142/88
[2020-01-02] MEDS: SIMVASTATIN 10 MG TABLET PO SCH (20:26)
[2020-01-02] MEDS: MIRTAZAPINE 15 MG TABLET PO SCH (20:26)
--- NOTE | 2020-01-02 21:14 | NUR ---
received patient in bed.awake and alert. Seen by Dr Castillo. Was able to communicate with the doctor and wants to go home. Patient able to comply and said he will take his medicines. 9pm meds given without difficulty. No acute distress noted. VSS. ambulates to the BR. Voiding freely. Kept comfortable.
[2020-01-03 04:00] VITALS: BP 143/55
--- NOTE | 2020-01-03 06:13 | NUR ---
End of shift notes: Slept well throughout the night. Awaken when he goes to the BR. Voiding well. Tolerated po meds well. VSS. Attended to needs and met. Fall precautions maintained. Siderails up for safety.
[2020-01-03] MEDS: PANTOPRAZOLE SODIUM 40 MG TABLET.DR PO SCH (06:24)
[2020-01-03 06:45] VITALS: BP 145/76
[2020-01-03] MEDS: levETIRAcetam 500 MG TABLET PO SCH ×2 (08:49→20:04)
[2020-01-03] MEDS: ASPIRIN 300 MG RECTAL SUPP RC SCH (09:00)
[2020-01-03] MEDS ORDERED: ASPIRIN 325 MG TABLET PO ONE (09:30)
[2020-01-03] MEDS ORDERED: LEVE500T9 PO (11:19)
[2020-01-03] MEDS ORDERED: MIRT15TA7 PO (11:19)
--- NOTE | 2020-01-03 13:28 | NUR ---
Received patient awake in stable condition. Patient consumed meals around 70-80%. Patient compliant with medication today. [facility]. elicia aware. WINDOW GLASS INSTALLER Andria aware.
--- NOTE | 2020-01-03 13:48 | NUR ---
Update: 1120am-Called [facility] [phone] who stated that [facility] has requested authorization this morning and will take about an hour or so to obtain auth. 1142am-Received a voice message from [facility] [phone] that they have received authorization 1150am-Spoke with the pt and explained his discharge orders and discharge plans. The pt is noted to be AO times 4, able to verbalize his needs and make his own healthcare decisions. The pt stated that he wanted to be discharged home and then changed his mind to go to the [facility]. 1233pm-Called Betzaida BERMUDEZ at [facility] [phone] and left a message to update her the [facility] has obtained auth and have accept the pt., and discharge orders are planned for today and will require authorization for transportation from [facility] to the [facility] [[address], [address], ] 1236pm-A message was received from Minal BERMUDEZ at [facility] who stated that she is covering for Betzaida today and confirmed to call [phone] opt 6 for transportation authorization 1256pm-Called and left a message with [facility] that the pt has accepted to go to [facility] [[address], [address] P:[phone]] 1303pm-Called [facility] and spoke with Carlo @ [phone] and confirmed fax number as [phone]. The pt's discharge summary and prescription faxed. Per Carlo: he has requested a nursing report before the pt's is DC and to confirm any triplicates for narcotics. Charge nurse aware. 1308pm-Called [phone] opt 6 for per-authorization from [facility] for transportation, spoke with Yumiko and the call was dropped 1314pm-Called [phone] opt 6 for per-authorization from [facility] for transportation, spoke with Dacia and the call was dropped 1319pm-Called [phone] opt 6 for per-authorization from [facility] for transportation, spoke with Delmy. The pt's pending case reference number for transportation [[id number]] is [id number]. Walt Brock: this request has to be reviewed by a nurse who will call this tower loader operator back to confirm authorization. 1344pm-A call was placed to Yumiko [] and left a message to call CM back. 1344pm-Called Minal at [facility] to update her on the authorization verification for transportation needed. 1408pm-Yumiko [] called back and was updated on the pt's discharge orders/plans and has agreed.
--- NOTE | 2020-01-03 14:06 | NUR ---
Patient no BM for days. Patient refuse stool softener despite of encouragement and education. no complaint of abdominal pain/discomfort. Patient refuse abdominal assessment. will continue monitor
--- NOTE | 2020-01-03 14:59 | NUR ---
Patient report given to Carlo from [facility] at 2pm.
[2020-01-03 15:55] VITALS: BP 119/80
--- NOTE | 2020-01-03 15:55 | NUR ---
Received a call from Minal from [facility] and was informed that she cannot guarantee that her medical doctor will authorize a medical transportation for the pt but will call back with a decision.
--- NOTE | 2020-01-03 17:03 | NUR ---
Called Leanna and updated her that transportation will be between 8-830pm, [left message]. Called Carlo at [facility] @ [phone] and updated him on the ambulance curing pickling packer time and has confirmed that the facility can still accept the pt. Ganesh gave auth for Tony to bill the hospital in case the pt's insurance does not give transportation authorization. Per Ganesh: [facility] will bill try to bill the pt first and the hospital as a second option.
--- NOTE | 2020-01-03 17:22 | NUR ---
Received a call from Diann from [facility] and has confirmed authorization for transportation [id number].
--- NOTE | 2020-01-03 17:25 | NUR ---
A call was received from Yumiko [] and was updated on the pt pick-up time
--- NOTE | 2020-01-03 18:30 | NUR ---
Patient given prune juice for BM. Patient still refusing laxative and stool softener for constipation. no complaint voiced during rounds. Patient will be discharge at 930pm via ambulance. Patient aware. will endorse
[2020-01-03] MEDS: MIRTAZAPINE 15 MG TABLET PO SCH (20:04)
[2020-01-03] MEDS: SIMVASTATIN 10 MG TABLET PO SCH (20:04)
--- NOTE | 2020-01-03 20:07 | NUR ---
Received patient awake and alert in bed, no signs of acute distress noted. Patient answering questions, saying he is feeling good, has been eating good and taking his medication. Patient is compliant with medication. Patient aware that [facility], signed consent. Safety measures initiated. Bed is low and locked, call light within reach. Will continue to monitor.
--- NOTE | 2020-01-03 22:26 | NUR ---
Patient left in stable condition, report given to EMT. Patient explained discharge instructions and verbalized understanding. Belongings and discharge instructions given to EMT.
[2020-01-04] MEDS ORDERED: ASPIRIN 325 MG TABLET PO SCH (09:00)
== END 2020-01-03 22:45 | DRG 100 ==
LOC: ER 21:14 → CCU 12-15 02:15 → MEDSURG3 12-15 14:05
PROVIDERS: ADMIT Nurse Practitioner Acute Care; ATTEND Registered Nurse
PROC: 05H633Z Insertion of Infusion Device into Left Subclavian Vein, Percutaneous Approach (ICD-10-PCS; principal; 2019-12-18)
PROC: B01BZZZ Fluoroscopy of Spinal Cord (ICD-10-PCS; principal; 2019-12-18)
PROC: 009U3ZX Drainage of Spinal Canal, Percutaneous Approach, Diagnostic (ICD-10-PCS; principal; 2019-12-18)
PROC: 05H533Z Insertion of Infusion Device into Right Subclavian Vein, Percutaneous Approach (ICD-10-PCS; 2020-01-01)
PROC: B546ZZA Ultrasonography of Right Subclavian Vein, Guidance (ICD-10-PCS; 2020-01-01)
DX: G40.909 Epilepsy, unspecified, not intractable, without status epilepticus (principal); G83.5 Locked-in state; R40.2212 Coma scale, best verbal response, none, at arrival to emergency department; N17.0 Acute kidney failure with tubular necrosis; I63.89 Other cerebral infarction; G92 Toxic encephalopathy; E87.0 Hyperosmolality and hypernatremia; D68.69 Other thrombophilia; F32.3 Major depressive disorder, single episode, severe with psychotic features; K80.00 Calculus of gallbladder with acute cholecystitis without obstruction; E86.0 Dehydration; R40.2362 Coma scale, best motor response, obeys commands, at arrival to emergency department; R40.2142 Coma scale, eyes open, spontaneous, at arrival to emergency department; E66.01 Morbid (severe) obesity due to excess calories; E87.6 Hypokalemia; E83.52 Hypercalcemia; F29 Unspecified psychosis not due to a substance or known physiological condition; R29.721 NIHSS score 21; R74.0 Nonspecific elevation of levels of transaminase and lactic acid dehydrogenase [LDH]; Z91.14 Patient's other noncompliance with medication regimen; F06.1 Catatonic disorder due to known physiological condition; E87.8 Other disorders of electrolyte and fluid balance, not elsewhere classified; F12.90 Cannabis use, unspecified, uncomplicated; G93.0 Cerebral cysts; Z68.34 Body mass index [BMI] 34.0-34.9, adult
CPT/HCPCS: 36415; 62270; 70450; 70553; 71045; 74018; 78445; 80307; 80329; 83605; 83735; 83970; 84100; 84155; 84156; 84157; 84165; 84300; 84443; 85025; 85610; 87040; 87086; 89051; 93005; 95819; A4663; A9537; A9579; C9113; G0378; G0480; G0480-TC; J0515; J1630; J1953; J2060; J2405; J2765; J3230; J3475; J3480; J3490; J7030; J7042; J7050; J7060; U0003-CS